=== PATIENT | female | born 1950 | race Hispanic/Latino ===

== ENCOUNTER 2023-10-01 05:47 | Day surgery (SDC) | payer OTHER, MEDICARE ==
[~2023-10-01] VITALS: Ht 152.4 cm; Wt 51.7 kg
[2023-10-01] VITALS (10 sets, daily range): BP systolic 105–151; BP diastolic 42–58; PULSE 50–58; RESP 14–17
[~2023-10-01 05:47] MED LIST: ATOR10 PO; GABA-529 PO; LEVO50CA4 PO; MEMA5TAB16 PO; OLMESARTAN PO
[2023-10-01] MEDS: 0.9%NACL 1000ML 1,000 ML IV ONE (06:29)
[2023-10-01] MEDS ORDERED: LIDOCAINE HCL 1% 20 ML VIAL ONE (07:02)
[2023-10-01] MEDS ORDERED: PROPOFOL 10 MG/ML 20ML VIAL IV ONE (07:02)
== END 2023-10-01 08:40 | disposition home or self-care (01) ==
LOC: DAH 05:47 → ENDO 05:47
PROVIDERS: ATTEND Internal Medicine
DX: R10.10 Upper abdominal pain, unspecified (principal); R94.5 Abnormal results of liver function studies; R93.2 Abnormal findings on diagnostic imaging of liver and biliary tract; K59.00 Constipation, unspecified; K29.70 Gastritis, unspecified, without bleeding; I10 Essential (primary) hypertension; E78.00 Pure hypercholesterolemia, unspecified; Z90.49 Acquired absence of other specified parts of digestive tract; Z80.0 Family history of malignant neoplasm of digestive organs; Z72.89 Other problems related to lifestyle; Z88.6 Allergy status to analgesic agent
CPT/HCPCS: 43237; 43239; J7030; J2704; A4620; A4215 ×2; A4223; A4222; A4221; A4663; A4606; J3490